=== PATIENT | female | born 1970 | race Caucasian/White ===

== ENCOUNTER 2018-02-08 01:10 | Emergency (ER) | payer OTHER ==
[2018-02-08 01:58] VITALS: BP 139/91
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
[2018-02-08] MEDS ORDERED: Bacitracin Oint 1 GM U/D Packet TOP ONE (02:58)
== END 2018-02-08 03:25 ==
LOC: JP.ED 01:10
DX: S41.111A Laceration without foreign body of right upper arm, initial encounter (principal); F10.129 Alcohol abuse with intoxication, unspecified; I10 Essential (primary) hypertension; K21.9 Gastro-esophageal reflux disease without esophagitis; F17.210 Nicotine dependence, cigarettes, uncomplicated; X83.8XXA Intentional self-harm by other specified means, initial encounter; Z79.899 Other long term (current) drug therapy
CPT/HCPCS: 12002; 80305-QW; 99284-25

== ENCOUNTER 2018-03-10 17:54 | Emergency (ER) | payer OTHER ==
[2018-03-10 18:12] VITALS: BP 141/90
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
== END 2018-03-10 19:10 | disposition home or self-care (01) ==
LOC: JP.ED 17:54
DX: F10.129 Alcohol abuse with intoxication, unspecified (principal); F17.210 Nicotine dependence, cigarettes, uncomplicated; I10 Essential (primary) hypertension; Z79.899 Other long term (current) drug therapy
CPT/HCPCS: 99285

== ENCOUNTER 2018-07-15 19:04 | Emergency (ER) | payer OTHER ==
[2018-07-15 19:45] VITALS: BP 123/94
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
== END 2018-07-15 20:38 | disposition other institution (70) ==
LOC: JP.ED 19:04
DX: F10.129 Alcohol abuse with intoxication, unspecified (principal); I10 Essential (primary) hypertension; K21.9 Gastro-esophageal reflux disease without esophagitis; F17.210 Nicotine dependence, cigarettes, uncomplicated; Y90.8 Blood alcohol level of 240 mg/100 ml or more
CPT/HCPCS: 36415; 80048; 80305; 81001; 85025; 99285; G0480

== ENCOUNTER 2018-07-19 19:01 | Emergency (ER) | payer OTHER ==
[2018-07-19 19:58] VITALS: BP 120/82
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
[2018-07-19] MEDS ORDERED: Ciprofloxacin 500 MG Tab PO ONE (21:10)
== END 2018-07-19 21:20 ==
LOC: JP.ED 19:01
DX: F10.929 Alcohol use, unspecified with intoxication, unspecified (principal); N39.0 Urinary tract infection, site not specified; F17.210 Nicotine dependence, cigarettes, uncomplicated; I10 Essential (primary) hypertension; Z79.899 Other long term (current) drug therapy
CPT/HCPCS: 36415; 80048; 81001; 87086; 87088; 87186; 99285; A9270; G0480

== ENCOUNTER 2018-07-22 21:15 | Emergency (ER) | payer OTHER ==
[2018-07-22 22:44] VITALS: BP 148/100
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
== END 2018-07-23 00:21 | disposition home or self-care (01) ==
LOC: JP.ED 21:15
DX: F10.120 Alcohol abuse with intoxication, uncomplicated (principal); Y90.8 Blood alcohol level of 240 mg/100 ml or more
CPT/HCPCS: 36415; 80305; 83690; 99284; G0480

== ENCOUNTER 2018-09-09 14:51 | Inpatient (IN) | payer MEDICAID, OTHER ==
[2018-09-09] MEDS ORDERED: Ondansetron 4 MG/2 ML SDV IVPUSH ONE (14:55)
[2018-09-09] MEDS ORDERED: Sodium Chloride 0.9% 1,000 ML IV SCH ×2 (15:00→15:15)
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
[2018-09-09] MEDS: Sodium Chloride 0.9% 1,000 ML IV SCH (19:27)
[2018-09-09] MEDS ORDERED: LORazepam 2 MG/ML SDV IV SCH (19:30)
[2018-09-09] MEDS ORDERED: Sertraline 25 MG Tab PO SCH (21:00)
[2018-09-09] MEDS: Dicyclomine 10 MG Cap PO SCH (21:45)
[2018-09-10] MEDS: Sodium Chloride 0.9% 1,000 ML IV SCH (03:00)
[2018-09-10] MEDS: Dicyclomine 10 MG Cap PO SCH ×2 (06:08→09:20)
[2018-09-10] MEDS ORDERED: Nicotine 21 MG/24 Hr Patch TRDERM SCH (09:00)
--- NOTE | 2018-09-10 14:12 | PCM.PN ---
- General Info Date of Service: 09/10/18 Functional Status: Reports: Pain Controlled - Review of Systems General: Reports: No Symptoms HEENT: Reports: No Symptoms Pulmonary: Reports: No Symptoms Cardiovascular: Reports: No Symptoms Gastrointestinal: Reports: No Symptoms Genitourinary: Reports: No Symptoms Musculoskeletal: Reports: No Symptoms Skin: Reports: No Symptoms Neurological: Reports: No Symptoms Psychiatric: Reports: Depression, Anxiety - Patient Data Vitals - Most Recent: Last Vital Signs Temp 97.7 F 09/10/18 12:36 Pulse 82 09/10/18 12:36 Resp 16 09/10/18 12:36 BP 114/61 09/10/18 12:36 Pulse Ox 97 09/10/18 12:36 Weight - Most Recent: 130 lb I&O - Last 24 Hours: Intake & Output 09/09/18 09/10/18 09/10/18 22:59 06:59 14:59 Intake Total 1853 313 Output Total 200 625 600 Balance -200 1228 -287 Lab Results Last 24 Hours: Laboratory Results - last 24 hr 09/09/18 09/09/18 09/09/18 Range/Units 14:55 14:55 14:55 WBC 5.9 (4.5-11.0) K/uL RBC 4.75 (3.30-5.50) M/uL Hgb 15.5 H (12.0-15.0) g/dL Hct 48.0 (36.0-48.0) % MCV 101 H (80-98) fL MCH 33 H (27-31) pg MCHC 32 (32-36) % Plt Count 302 (150-400) K/uL Neut % (Auto) 52 (36-66) % Lymph % (Auto) 41 (24-44) % [place] % (Auto) 6 (2-6) % Eos % (Auto) 0 L (2-4) % Baso % (Auto) 1 (0-1) % Sodium 141 (140-148) mmol/L Potassium 3.6 (3.6-5.2) mmol/L Chloride 103 (100-108) mmol/L Carbon Dioxide 23 (21-32) mmol/L Anion Gap 14.6 H (5.0-14.0) mmol/L BUN 12 (7-18) mg/dL Creatinine 0.9 (0.6-1.0) mg/dL Est Cr Clr Drug Dosing 59.15 mL/min Estimated GFR (MDRD) > 60 (>60) Glucose 102 (74-106) mg/dL Calcium 8.3 L (8.5-10.1) mg/dL Total Bilirubin 0.2 (0.2-1.0) mg/dL AST 52 H (15-37) U/L ALT 68 (12-78) U/L Alkaline Phosphatase 73 (46-116) U/L Total Protein 7.0 (6.4-8.2) g/dL Albumin 3.6 (3.4-5.0) g/dL Globulin 3.4 (2.3-3.5) g/dL Albumin/Globulin Ratio 1.1 L (1.2-2.2) Urine Color Urine Appearance Urine pH (4.5-8.0) Ur Specific [place] (1.008-1.030) Urine Protein (NEGATIVE) mg/dL Urine Glucose (UA) (NEGATIVE) mg/dL Urine Ketones (NEGATIVE) mg/dL Urine Occult Blood (NEGATIVE) Urine Nitrite (NEGATIVE) Urine Bilirubin (NEGATIVE) Urine Urobilinogen (NORMAL) mg/dL Ur Leukocyte Esterase (NEGATIVE) Urine RBC (0-5) Urine WBC (0-5) Ur Epithelial Cells Amorphous Sediment Urine Bacteria Urine Mucus Salicylates (2.0-20.0) mg/dL Urine Opiates Screen (NEGATIVE) Ur Oxycodone Screen (NEGATIVE) Urine Methadone Screen (NEGATIVE) Ur Propoxyphene Screen (NEGATIVE) Acetaminophen (10.0-30.0) ug/mL Ur Barbiturates Screen (NEGATIVE) Ur Tricyclics Screen (NEGATIVE) Ur Phencyclidine Scrn (NEGATIVE) Ur Amphetamine Screen (NEGATIVE) U Methamphetamines Scrn (NEGATIVE) Urine MDMA Screen (NEGATIVE) U Benzodiazepines Scrn (NEGATIVE) U Cocaine Metab Screen (NEGATIVE) U Marijuana (THC) Screen (NEGATIVE) Ethyl Alcohol 278 mg/dL 09/09/18 09/09/18 09/09/18 Range/Units 15:47 15:48 19:49 WBC (4.5-11.0) K/uL RBC (3.30-5.50) M/uL Hgb (12.0-15.0) g/dL Hct (36.0-48.0) % MCV (80-98) fL MCH (27-31) pg MCHC (32-36) % Plt Count (150-400) K/uL Neut % (Auto) (36-66) % Lymph % (Auto) (24-44) % [place] % (Auto) (2-6) % Eos % (Auto) (2-4) % Baso % (Auto) (0-1) % Sodium (140-148) mmol/L Potassium (3.6-5.2) mmol/L Chloride (100-108) mmol/L Carbon Dioxide (21-32) mmol/L Anion Gap (5.0-14.0) mmol/L BUN (7-18) mg/dL Creatinine (0.6-1.0) mg/dL Est Cr Clr Drug Dosing mL/min Estimated GFR (MDRD) (>60) Glucose (74-106) mg/dL Calcium (8.5-10.1) mg/dL Total Bilirubin (0.2-1.0) mg/dL AST (15-37) U/L ALT (12-78) U/L Alkaline Phosphatase (46-116) U/L Total Protein (6.4-8.2) g/dL Albumin (3.4-5.0) g/dL Globulin (2.3-3.5) g/dL Albumin/Globulin Ratio (1.2-2.2) Urine Color Yellow Urine Appearance Slightly cloudy Urine pH 6.0 (4.5-8.0) Ur Specific [place] 1.020 (1.008-1.030) Urine Protein Trace (NEGATIVE) mg/dL Urine Glucose (UA) Normal (NEGATIVE) mg/dL Urine Ketones 15 H (NEGATIVE) mg/dL Urine Occult Blood Trace (NEGATIVE) Urine Nitrite Negative (NEGATIVE) Urine Bilirubin Negative (NEGATIVE) Urine Urobilinogen Normal (NORMAL) mg/dL Ur Leukocyte Esterase Negative (NEGATIVE) Urine RBC 0-5 (0-5) Urine WBC 5-10 H (0-5) Ur Epithelial Cells Moderate Amorphous Sediment Not seen Urine Bacteria Few Urine Mucus Few Salicylates 4.4 (2.0-20.0) mg/dL Urine Opiates Screen (NEGATIVE) Ur Oxycodone Screen (NEGATIVE) Urine Methadone Screen (NEGATIVE) Ur Propoxyphene Screen (NEGATIVE) Acetaminophen < 2.0 L (10.0-30.0) ug/mL Ur Barbiturates Screen (NEGATIVE) Ur Tricyclics Screen (NEGATIVE) Ur Phencyclidine Scrn (NEGATIVE) Ur Amphetamine Screen (NEGATIVE) U Methamphetamines Scrn (NEGATIVE) Urine MDMA Screen (NEGATIVE) U Benzodiazepines Scrn (NEGATIVE) U Cocaine Metab Screen (NEGATIVE) U Marijuana (THC) Screen (NEGATIVE) Ethyl Alcohol mg/dL 09/09/18 09/10/18 09/10/18 Range/Units 19:49 04:50 04:50 WBC 7.7 (4.5-11.0) K/uL RBC 3.85 (3.30-5.50) M/uL Hgb 12.8 D (12.0-15.0) g/dL Hct 39.7 (36.0-48.0) % MCV 103 H (80-98) fL MCH 33 H (27-31) pg MCHC 32 (32-36) % Plt Count 233 (150-400) K/uL Neut % (Auto) 72 H (36-66) % Lymph % (Auto) 19 L (24-44) % [place] % (Auto) 7 H (2-6) % Eos % (Auto) 1 L (2-4) % Baso % (Auto) 0 (0-1) % Sodium 141 (140-148) mmol/L Potassium 3.9 (3.6-5.2) mmol/L Chloride 108 (100-108) mmol/L Carbon Dioxide 24 (21-32) mmol/L Anion Gap 9.3 (5.0-14.0) mmol/L BUN 10 (7-18) mg/dL Creatinine 0.7 (0.6-1.0) mg/dL Est Cr Clr Drug Dosing 79.54 mL/min Estimated GFR (MDRD) > 60 (>60) Glucose 92 (74-106) mg/dL Calcium 7.6 L (8.5-10.1) mg/dL Total Bilirubin 0.4 D (0.2-1.0) mg/dL AST 42 H (15-37) U/L ALT 53 (12-78) U/L Alkaline Phosphatase 61 (46-116) U/L Total Protein 5.5 L (6.4-8.2) g/dL Albumin 2.9 L (3.4-5.0) g/dL Globulin 2.6 (2.3-3.5) g/dL Albumin/Globulin Ratio 1.1 L (1.2-2.2) Urine Color Urine Appearance Urine pH (4.5-8.0) Ur Specific [place] (1.008-1.030) Urine Protein (NEGATIVE) mg/dL Urine Glucose (UA) (NEGATIVE) mg/dL Urine Ketones (NEGATIVE) mg/dL Urine Occult Blood (NEGATIVE) Urine Nitrite (NEGATIVE) Urine Bilirubin (NEGATIVE) Urine Urobilinogen (NORMAL) mg/dL Ur Leukocyte Esterase (NEGATIVE) Urine RBC (0-5) Urine WBC (0-5) Ur Epithelial Cells Amorphous Sediment Urine Bacteria Urine Mucus Salicylates (2.0-20.0) mg/dL Urine Opiates Screen Negative (NEGATIVE) Ur Oxycodone Screen Negative (NEGATIVE) Urine Methadone Screen Negative (NEGATIVE) Ur Propoxyphene Screen Negative (NEGATIVE) Acetaminophen (10.0-30.0) ug/mL Ur Barbiturates Screen Negative (NEGATIVE) Ur Tricyclics Screen Negative (NEGATIVE) Ur Phencyclidine Scrn Negative (NEGATIVE) Ur Amphetamine Screen Negative (NEGATIVE) U Methamphetamines Scrn Negative (NEGATIVE) Urine MDMA Screen Negative (NEGATIVE) U Benzodiazepines Scrn Negative (NEGATIVE) U Cocaine Metab Screen Negative (NEGATIVE) U Marijuana (THC) Screen Negative (NEGATIVE) Ethyl Alcohol mg/dL Med Orders - Current: Current Medications Dicyclomine HCl (Bentyl) 20 mg PO QID [facility] Last Admin: 09/10/18 09:20 Dose: 20 mg Sodium Chloride (Normal Saline) 1,000 mls @ 125 mls/hr IV ASDIRECTED WADE Last Admin: 09/10/18 03:00 Dose: 125 mls/hr Lorazepam (Ativan) 0 mg IV ASDIRECTED [facility]; Protocol Nicotine (Habitrol) 21 mg TRDERM DAILY WADE Last Admin: 09/10/18 08:20 Dose: 21 mg Sertraline HCl (Zoloft) 25 mg PO BEDTIME WADE Last Admin: 09/09/18 21:45 Dose: 25 mg Discontinued Medications Sodium Chloride (Normal Saline) 1,000 mls @ 999 mls/hr IV ASDIRECTED WADE Last Admin: 09/09/18 15:21 Dose: 999 mls/hr Sodium Chloride (Normal Saline) 1,000 mls @ 999 mls/hr IV ASDIRECTED WADE Last Admin: 09/09/18 17:08 Dose: 999 mls/hr Ondansetron HCl (Zofran) 4 mg IVPUSH ONETIME ONE Stop: 09/09/18 14:56 Last Admin: 09/09/18 18:16 Dose: Not Given - Exam General: Alert, Oriented HEENT: Pupils Equal, Pupils Reactive, EOMI, Mucous Membr. Moist/[place] Neck: Supple Lungs: Clear to Auscultation, Normal Respiratory Effort Cardiovascular: Regular Rate, Regular Rhythm GI/Abdominal Exam: Normal Bowel Sounds, Soft, Non-Tender, No Organomegaly, No Distention, No Abnormal Bruit, No Mass, Pelvis Stable Back Exam: Normal Inspection, Full Range of Motion Extremities: Normal Inspection, Normal Range of Motion, Non-Tender, No Pedal Edema, Normal Capillary Refill Skin: Warm, Dry, Intact Neurological: No New Focal Deficit Psy/Mental Status: Alert, Normal Affect, Normal Mood - Problem List Review Problem List Initiated/Reviewed/Updated: Yes - My Orders Last 24 Hours: My Active Orders 09/09/18 17:20 Height and Weight [RC] UPON May Shower [RC] ASDIRECTED Up to Chair [RC] QID Resuscitation Status Routine 09/09/18 17:21 Patient Status [ADT] Routine Oxygen Therapy [RC] PRN VTE/DVT Education [RC] Per Unit Routine Vital Signs [RC] Q2H 09/09/18 17:23 Intake and Output [RC] QSHIFT 09/09/18 19:15 Sodium Chloride 0.9% [Normal Saline] 1,000 ml IV ASDIRECTED 09/09/18 19:27 CIWAA Assessment [RC] Q2H Notify Provider [RC] PRN 09/09/18 19:30 LORazepam [Ativan] See Protocol IV ASDIRECTED 09/09/18 21:00 Sertraline [Zoloft] 25 mg PO BEDTIME 09/09/18 22:00 Dicyclomine [Bentyl] 20 mg PO QID 09/10/18 07:00 Notify Provider Consults [RC] ASDIRECTED 09/10/18 09:00 Nicotine [Habitrol] 21 mg TRDERM DAILY 09/10/18 09:34 Convert IV to Saline Lock [OM.PC] Routine 09/10/18 Breakfast Regular Diet [DIET] - Plan Plan:: Assessment/Plan: #1. Alcoholism: No DT's evident #2. Suicidal attempt. Consult PSY pending #3. IBS: Will continue with Dicyclomine. #4. Depression: Will begin Zoloft 25mg daily for 1 week then 50 mg daily. BP 114/61 78 pulse. blood work shows no acute pathology. Psy evaluation today and will decide after advise from Dr.Joel Painter
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
[2018-09-10 15:44] VITALS: BP 123/68
[2018-09-10] MEDS ORDERED: Dicyclomine 10 MG Cap PO ONE (16:00)
== END 2018-09-10 17:16 | disposition home or self-care (01) | DRG 897 ==
LOC: JP.ED 14:51 → JP.ICU 17:20
PROVIDERS: ADMIT Internal Medicine; ATTEND Internal Medicine
DX: F10.229 Alcohol dependence with intoxication, unspecified (principal); T43.212A Poisoning by selective serotonin and norepinephrine reuptake inhibitors, intentional self-harm, initial encounter; F32.9 Major depressive disorder, single episode, unspecified; Y92.009 Unspecified place in unspecified non-institutional (private) residence as the place of occurrence of the external cause; Y90.8 Blood alcohol level of 240 mg/100 ml or more; I10 Essential (primary) hypertension; F17.210 Nicotine dependence, cigarettes, uncomplicated; K58.9 Irritable bowel syndrome, unspecified; H54.7 Unspecified visual loss; Z87.440 Personal history of urinary (tract) infections; Z91.419 Personal history of unspecified adult abuse
CPT/HCPCS: 36415; 51702; 80053; 80305-QW; 81001; 85025; 93005; 93010; 96360; 96361; 99285-25; A9270-GY; G0480; J7030

== ENCOUNTER 2020-01-08 19:54 | Emergency (ER) | payer MEDICAID ==
[2020-01-08] MEDS ORDERED: LORazepam 2 MG/ML SDV IM ONE (20:13)
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
[2020-01-08] MEDS ORDERED: LORazepam 2 MG/ML SDV IVPUSH ONE (20:34)
--- NOTE | 2020-01-08 20:49 | CRLCT ---
INDICATION: Altered mental status. Cerebral vascular accident symptoms. TECHNIQUE: CT Head without contrast. COMPARISON: None. FINDINGS: CSF spaces: Within normal limits for age. Brain parenchyma: The alvarado-white differentiation is normal. No sign of mass, hemorrhage, or midline shift. Skull base and calvarium: The visualized paranasal sinuses and mastoid air cells are clear. The visualized orbits are grossly unremarkable. No skull fractures. . IMPRESSION: Unremarkable noncontrast head CT. Please note that all CT scans at this facility use dose modulation, iterative reconstruction, and/or weight-based dosing when appropriate to reduce radiation dose to as low as reasonably achievable. Dictated by Andriy Jones MD @ Jan 08 2020 8:47PM Signed by Dr. Andriy Jones @ Jan 08 2020 8:48PM
[2020-01-08 22:15] VITALS: BP 101/62; PULSE 90
== END 2020-01-08 21:44 | disposition home or self-care (01) ==
LOC: JP.ED 19:54
DX: F10.120 Alcohol abuse with intoxication, uncomplicated (principal); I10 Essential (primary) hypertension; F41.9 Anxiety disorder, unspecified; F32.9 Major depressive disorder, single episode, unspecified; Y90.7 Blood alcohol level of 200-239 mg/100 ml; Z79.899 Other long term (current) drug therapy
CPT/HCPCS: 36415; 70450; 80053; 80305; 80307; 81001; 82803; 83605; 84484; 85027; 85610; 93005; 96374; 99284; J2060; 93010

== ENCOUNTER 2021-02-06 15:57 | Emergency (ER) | payer MEDICAID ==
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
== END 2021-02-06 16:55 | disposition left against medical advice (07) ==
LOC: JP.ED 15:57
DX: S00.03XA Contusion of scalp, initial encounter (principal); F10.129 Alcohol abuse with intoxication, unspecified; K21.9 Gastro-esophageal reflux disease without esophagitis; I10 Essential (primary) hypertension; Z86.73 Personal history of transient ischemic attack (TIA), and cerebral infarction without residual deficits; Z72.0 Tobacco use; Y04.2XXA Assault by strike against or bumped into by another person, initial encounter
CPT/HCPCS: 99282; 99284

== ENCOUNTER 2023-06-10 06:59 | Day surgery (SDC) | payer MEDICAID ==
[~2023-06-10 06:59] MED LIST: Bupivacaine 0.5% 30 ML SDV ONE
[2023-06-10] MEDS ORDERED: ceFAZolin 2 GM in Premix Bag 1 BAG IV ONE (07:10)
[2023-06-10] MEDS ORDERED: ceFAZolin 2 GM in Sodium Chloride 0.9% 100 ML IV ONE (07:10)
[2023-06-10] MEDS ORDERED: Lactated Ringers 1,000 ML IV SCH (07:20)
[2023-06-10] MEDS ORDERED: fentaNYL 100 MCG/2 ML SDV ONE ×3 (07:26→09:01)
[2023-06-10] MEDS ORDERED: Propofol 200 MG/20 ML SDV ONE (07:26)
[2023-06-10] MEDS ORDERED: Midazolam 1 MG/ML 2 ML SDV ONE (07:26)
[2023-06-10] MEDS ORDERED: Nozin Nasal Sanitizer NASBOTH ONE (07:30)
[2023-06-10] MEDS ORDERED: Dexamethasone 4 MG/ML SDV ONE (08:38)
[2023-06-10] MEDS ORDERED: Ondansetron 4 MG/2 ML SDV ONE (08:38)
[2023-06-10] MEDS ORDERED: Acetaminophen/HYDROcodone 325-5 MG Tab PO PRN (10:15)
[2023-06-10 11:01] VITALS: BP 96/66; PULSE 68
== END 2023-06-10 11:24 | disposition home or self-care (01) ==
LOC: JP.SDS 06:59
PROVIDERS: ATTEND Specialist
DX: S83.231A Complex tear of medial meniscus, current injury, right knee, initial encounter (principal); I10 Essential (primary) hypertension; K21.9 Gastro-esophageal reflux disease without esophagitis; F17.200 Nicotine dependence, unspecified, uncomplicated; X58.XXXA Exposure to other specified factors, initial encounter
CPT/HCPCS: 29881; A9270; J0690; J1100; J2250; J2405; J2704; J3010; J3490; J7120; J0665

== ENCOUNTER 2024-03-30 09:35 | Inpatient (IN) | payer MEDICAID ==
[~2024-03-30 09:35] MED LIST changes: -Bupivacaine 0.5% 30 ML SDV ONE; +Bupivacaine 0.5% 50 ML MDV ONE; +Midazolam 1 MG/ML 2 ML SDV ONE; +Propofol 200 MG/20 ML SDV ONE; +fentaNYL 100 MCG/2 ML SDV ONE
[2024-03-30 09:59] LABS: BASOPHILS ABSOLUTE AUTO 0.04 K/uL (0.00-0.10); BASOPHILS PERCENT AUTO 0.4 % (0.1-1.3); EOSINOPHILS ABSOLUTE AUTO 0.04 K/uL (0.00-0.40); EOSINOPHILS PERCENT AUTO 0.4 % (0.0-5.4); HEMATOCRIT 38.8 % (34.3-46.0); HEMOGLOBIN 13.5 g/dL (11.2-15.5); IMMATURE GRAN ABSOLUTE AUTO 0.03 K/uL (0.00-0.23); IMMATURE GRAN PERCENT AUTO 0.3 % (0.0-0.7); LYMPHOCYTES ABSOLUTE AUTO 2.18 K/uL (0.8-3.3); LYMPHOCYTES PERCENT AUTO 19.6 % (11.4-47.7); MEAN CORPUSCULAR HEMOGLOBIN 33.4 pg (31.6-35.5); MEAN CORPUSCULAR HGB CONC 34.8 g/dL (31.6-35.5); MONOCYTES ABSOLUTE AUTO 0.68 K/uL (0.20-0.90); MONOCYTES PERCENT AUTO 6.1 % (3.3-12.6); NEUTROPHILS ABSOLUTE AUTO 8.16 K/uL (1.0-7.6); NEUTROPHILS PERCENT AUTO 73.2 % (40.0-78.1); PLATELET COUNT,PLT 258 K/uL (130-375); RED BLOOD CELL COUNT 4.04 M/uL (3.77-5.24); WHITE BLOOD CELL COUNT,WBC 11.1 K/uL (3.2-11.0)
[2024-03-30] MEDS: Nozin Nasal Sanitizer NASBOTH ONE (10:15)
[2024-03-30 10:18] LABS: CALCIUM 9.9 mg/dL (8.5-10.1); CREATININE 1.1 mg/dL (0.6-1.0); EST CRCL DRUG DOSING (CG) 49.9 mL/min; POTASSIUM,K 4.3 mmol/L (3.6-5.2)
[2024-03-30] MEDS: Lactated Ringers 1,000 ML IV SCH (10:43)
[2024-03-30] MEDS: ceFAZolin 2 GM in Premix Bag 1 BAG IV ONE (11:15)
[2024-03-30] MEDS ORDERED: fentaNYL 100 MCG/2 ML SDV ONE ×2 (11:28→12:32)
[2024-03-30] MEDS ORDERED: Midazolam 1 MG/ML 2 ML SDV ONE (11:28)
[2024-03-30] MEDS ORDERED: Propofol 200 MG/20 ML SDV ONE ×3 (11:35→12:33)
[2024-03-30] MEDS ORDERED: Lactated Ringers 1,000 ML ONE (11:39)
[2024-03-30] MEDS: Tranexamic Acid 600 MG in Sodium Chloride 0.9% 50 ML IV ONE (11:50)
[2024-03-30] MEDS ORDERED: Non-Formulary Medication 1 Each (Trazodone [Trazodone] 100 MG Tablet) PO PRN (13:17)
[2024-03-30] MEDS ORDERED: Magnesium Hydroxide 400 MG/5 ML Susp 30 ML Cup PO PRN (13:17)
[2024-03-30] MEDS ORDERED: ceFAZolin 2 GM in Sodium Chloride 0.9% 50 ML IV SCH (13:30)
[2024-03-30] MEDS: oxyCODONE 5 MG Tab PO PRN (14:08)
[2024-03-30] MEDS: Ketorolac 15 MG/ML SDV IVPUSH PRN (15:28)
[2024-03-30] MEDS ORDERED: Non-Formulary Medication 1 Each (Dicyclomine [Bentyl] 20 MG Tablet) PO SCH (16:00)
[2024-03-30] MEDS: Morphine 2 MG/ML SYRINGE IV PRN (16:16)
[2024-03-30] MEDS: Acetaminophen 325 MG Tab PO SCH (16:17)
[2024-03-30] MEDS: Ondansetron 4 MG/2 ML SDV IVPUSH PRN (16:47)
[2024-03-30] MEDS: ceFAZolin 2 GM in Premix Bag 1 BAG IV SCH (19:22)
[2024-03-30] MEDS: Nozin Nasal Sanitizer NASBOTH SCH (21:16)
[2024-03-30] MEDS: Sodium Chloride 0.9% 1,000 ML IV SCH (22:37)
[2024-03-31] MEDS: Calcium Carbonate 500 MG Tab.Chew PO PRN (00:24)
[2024-03-31] MEDS: oxyCODONE 5 MG Tab PO PRN (02:16)
[2024-03-31 05:54] LABS: HEMATOCRIT 23.5 % (34.3-46.0); HEMOGLOBIN 8.1 g/dL (11.2-15.5); MEAN CORPUSCULAR HEMOGLOBIN 33.6 pg (31.6-35.5); MEAN CORPUSCULAR HGB CONC 34.5 g/dL (31.6-35.5); MEAN CORPUSCULAR VOLUME 97.5 fL (81.4-99.0); RED BLOOD CELL COUNT 2.41 M/uL (3.77-5.24); WHITE BLOOD CELL COUNT,WBC 4.9 K/uL (3.2-11.0)
[2024-03-31] MEDS: Cyclobenzaprine 10 MG Tab PO PRN (08:47)
[2024-03-31] MEDS: Aspirin 325 MG Tab.EC PO SCH (08:47)
[2024-03-31] MEDS: HYDROmorphone 2 MG Tab PO PRN (11:07)
[2024-03-31] MEDS: Dicyclomine 10 MG Cap PO SCH (11:09)
[2024-03-31] MEDS: VARENICLINE 1 MG PO SCH (12:24)
[2024-03-31] MEDS: Ketorolac 30 MG/ML SDV IVPUSH PRN (16:37)
[2024-03-31] MEDS: traZODone 50 MG Tab PO PRN (20:58)
[2024-04-01] MEDS: Docusate Sodium 100 MG Cap PO PRN (11:13)
[2024-04-01 11:55] VITALS: PULSE 91
[2024-04-01 14:59] VITALS: BP 106/64
== END 2024-04-01 15:15 | disposition home or self-care (01) | DRG 470 ==
LOC: JP.SDS 09:35 → JP.MS 13:17 → JP.SDS 03-31 14:45 → JP.MS 03-31 14:45
PROVIDERS: ADMIT Specialist; ATTEND Specialist
PROC: 0SRB0JZ Replacement of Left Hip Joint with Synthetic Substitute, Open Approach (ICD-10-PCS; principal; 2024-03-31)
DX: M16.12 Unilateral primary osteoarthritis, left hip (principal); F41.9 Anxiety disorder, unspecified; I10 Essential (primary) hypertension; Z79.82 Long term (current) use of aspirin; Z79.899 Other long term (current) drug therapy
CPT/HCPCS: 01214-QZ; 36415; 72170; 72170-26; 80048; 85025; 85027; 97110-GP; 97116-GP; 97161-GP; 97165-GO; 97530-GP; 97535-GO; A9270-GY; C1713; C1776; J0665; J0690; J1885; J2250; J2270; J2405; J2704; J3010; J3490; J7030; J7120

== ENCOUNTER 2024-08-10 09:15 | Inpatient (IN) | payer MEDICAID ==
[2024-08-10 09:48] LABS: HEMOGLOBIN 13.5 g/dL (11.2-15.5); MEAN CORPUSCULAR HGB CONC 34.6 g/dL (31.6-35.5); MEAN CORPUSCULAR VOLUME 92.4 fL (81.4-99.0); RED BLOOD CELL COUNT 4.22 M/uL (3.77-5.24); WHITE BLOOD CELL COUNT,WBC 11.6 K/uL (3.2-11.0)
[2024-08-10] MEDS ORDERED: Propofol 200 MG/20 ML SDV ONE ×4 (09:48→16:06)
[2024-08-10] MEDS ORDERED: Midazolam 1 MG/ML 2 ML SDV ONE ×4 (09:48→14:18)
[2024-08-10] MEDS ORDERED: fentaNYL 100 MCG/2 ML SDV ONE ×4 (09:48→16:06)
[2024-08-10 10:03] LABS: CALCIUM 9.1 mg/dL (8.5-10.1); CREATININE 1.1 mg/dL (0.6-1.0); EST CRCL DRUG DOSING (CG) 49.31 mL/min
[2024-08-10] MEDS: Nozin Nasal Sanitizer NASBOTH SCH ×2 (10:50→21:16)
[2024-08-10] MEDS: Lactated Ringers 1,000 ML IV SCH (10:51)
[2024-08-10] MEDS ORDERED: Bupivacaine 0.5% 50 ML MDV ONE (11:07)
[2024-08-10] MEDS: ceFAZolin 2 GM in Premix Bag 1 BAG IV ONE (13:10)
[2024-08-10] MEDS ORDERED: Magnesium Hydroxide 400 MG/5 ML Susp 30 ML Cup PO PRN (17:07)
[2024-08-10] MEDS: Morphine 2 MG/ML SYRINGE IVPUSH ONE (17:23)
[2024-08-10] MEDS: Morphine 2 MG/ML SYRINGE ONE (17:33)
[2024-08-10] MEDS: Ketorolac 15 MG/ML SDV IVPUSH PRN (17:54)
[2024-08-10] MEDS: Acetaminophen 325 MG Tab PO SCH (18:01)
[2024-08-10] MEDS: HYDROmorphone 2 MG Tab PO PRN (18:01)
[2024-08-10] MEDS: Morphine 2 MG/ML SYRINGE IV PRN (18:55)
[2024-08-10] MEDS: Sodium Chloride 0.9% 1,000 ML IV SCH (18:58)
[2024-08-10] MEDS: Ondansetron 4 MG/2 ML SDV IVPUSH PRN (19:29)
[2024-08-10] MEDS: Sodium Chloride 0.9% 1,000 ML IV ONE (19:56)
[2024-08-10] MEDS: Ketorolac 15 MG/ML SDV IVPUSH ONE (19:56)
[2024-08-10] MEDS: Naloxone 0.4 MG/ML SDV ONE (20:00)
[2024-08-10] MEDS: ceFAZolin 2 GM in Premix Bag 1 BAG IV SCH (21:06)
[2024-08-10] MEDS: Dicyclomine 10 MG Cap PO SCH (21:07)
[2024-08-10] MEDS: Aspirin 325 MG Tab.EC PO SCH (21:07)
[2024-08-10] MEDS: Albuterol 6.7 GM Inhaler INH SCH (21:14)
[2024-08-11] MEDS: Acetaminophen 1,000 MG in Premix Bag 1 BAG IV ONE (00:27)
[2024-08-11 06:02] LABS: HEMATOCRIT 23.2 % (34.3-46.0); HEMOGLOBIN 7.9 g/dL (11.2-15.5); MEAN CORPUSCULAR HEMOGLOBIN 32.4 pg (31.6-35.5); MEAN CORPUSCULAR HGB CONC 34.1 g/dL (31.6-35.5); MEAN CORPUSCULAR VOLUME 95.1 fL (81.4-99.0); RED BLOOD CELL COUNT 2.44 M/uL (3.77-5.24); WHITE BLOOD CELL COUNT,WBC 10.6 K/uL (3.2-11.0)
[2024-08-11] MEDS: Nicotine 21 MG/24 Hr Patch TRDERM SCH (08:35)
[2024-08-11] MEDS: Docusate Sodium 100 MG Cap PO PRN (20:49)
[2024-08-12] MEDS: traZODone 50 MG Tab PO PRN (01:20)
[2024-08-13 11:28] VITALS: BP 96/63; PULSE 96
== END 2024-08-13 14:26 | disposition home or self-care (01) | DRG 467 ==
LOC: JP.SDS 09:15 → JP.MS 17:07 → JP.SDS 08-11 09:24 → JP.MS 08-11 09:24
PROVIDERS: ADMIT Physician Assistant; ATTEND Specialist
PROC: 0SPB0JZ Removal of Synthetic Substitute from Left Hip Joint, Open Approach (ICD-10-PCS; 2024-08-10)
PROC: 0SRB0JZ Replacement of Left Hip Joint with Synthetic Substitute, Open Approach (ICD-10-PCS; principal; 2024-08-10 13:15)
DX: S72.002A Fracture of unspecified part of neck of left femur, initial encounter for closed fracture (principal); M97.02XA Periprosthetic fracture around internal prosthetic left hip joint, initial encounter; I95.9 Hypotension, unspecified; F17.210 Nicotine dependence, cigarettes, uncomplicated; H54.7 Unspecified visual loss; I10 Essential (primary) hypertension; K21.9 Gastro-esophageal reflux disease without esophagitis; K58.9 Irritable bowel syndrome, unspecified; M19.90 Unspecified osteoarthritis, unspecified site; F41.9 Anxiety disorder, unspecified; F32.A Depression, unspecified; Z98.891 History of uterine scar from previous surgery; Z79.899 Other long term (current) drug therapy; Z79.51 Long term (current) use of inhaled steroids; Z79.82 Long term (current) use of aspirin; Z86.73 Personal history of transient ischemic attack (TIA), and cerebral infarction without residual deficits; Z98.890 Other specified postprocedural states
CPT/HCPCS: 36415; 72170; 72170-26; 73501-26-LT; 73501-LT; 80048; 85027; 94640; 97110-GP; 97161-GP; 97165-GO; 97530-GP; A9270-GY; C1713; C1762; C1776; J0131; J0665; J0690; J1885; J2250; J2270; J2405; J2704; J3010; J7030; J7120